=== PATIENT | male | born 1935 | race Caucasian/White ===

== ENCOUNTER 2019-11-23 15:21 | Inpatient (IN) | payer MEDICARE, BC ==
[2019-11-23 17:37] LABS: Glucose,Whole Blood 121 mg/dL (75-99)
[2019-11-23 20:51] LABS: Glucose,Whole Blood 143 mg/dL (75-99)
[2019-11-23] MEDS: INSULIN ASPART (NovoLOG) 100 UNIT/ML VIAL SQ SCH (21:01)
[2019-11-24] MEDS: INSULIN ASPART (NovoLOG) 100 UNIT/ML VIAL SQ SCH ×4 (06:18→20:54)
[2019-11-24 06:19] LABS: Glucose,Whole Blood 101 mg/dL (75-99)
[2019-11-24] MEDS: LOSARTAN 50 MG TAB PO SCH (08:38)
[2019-11-24] MEDS: TAMSULOSIN 0.4 MG CAP.ER.24H PO SCH (08:38)
[2019-11-24] MEDS: metFORMIN 500 MG TAB PO SCH ×2 (08:38→20:10)
[2019-11-24] MEDS: MULTIVITAMINS, THERA 1 EACH TAB PO SCH (08:38)
[2019-11-24] MEDS: ATENOLOL 50 MG TAB PO SCH (08:39)
[2019-11-24] MEDS: ASCORBIC ACID 500 MG TAB PO SCH (08:39)
--- NOTE | 2019-11-24 11:05 | P.CNNES ---
History of Present Illness Consult date: 11/24/19 Requesting physician: Milagro Contreras Reason for Consult: Rule out CVA History of Present Illness: Patient is a 84-year-old right-handed male. transferred from the [facility] because of possible TIA versus CVA. Patient states that he never had any history of strokes or TIA. Yesterday he woke up at 4 AM and was feeling fine. He went back to sleep and then woke up at 7-8 AM. 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 He came back inside home, and was still doing fine. At around 9 AM, he had sudden onset of trouble speaking. He could not think right, couldn't talk and was not making sense while talking. This was noticed while he was talking to his . There was no associated numbness tingling focal weakness, facial droop, problem with the vision. He noticed headache left temporal, a nagging headache that lasted all day. He denied any nausea vomiting loss of vision double vision. The speech difficulty resolved in about half an hour. However he still has very very slight lingering headache. Patient went to [facility]. He underwent Computed tomography scan of head without contrast on 11/23/2019, which showed generalized volume loss and evidence of chronic small vessel disease, not unexpected for age. No acute process. Partially calcified chronic appearing paranasal sinusitis. EKG shows normal sinus rhythm. Magnesium 2.0 troponin negative CBC with WBC 5.3 hemoglobin 10.4 and platelets 252 liver panel normal, electrolytes normal. BUN 20, creatinine 1.0. UA negative. Blood pressure in the ER was 188/70, heart rate 81 Patient has history of hypertension, type 2 diabetes, hyperlipidemia, coronary atherosclerosis, hard of hearing. Patient's medications include atenolol 50 mg, losartan 50 mg metformin 1000 mg twice a day Reglan 10 mg 4 times a day, Mobic 50 mg, Prilosec, simvastatin 20 mg, tramadol, Xanax 0.25 mg Zantac. Patient states that he never used to take any aspirin on a regular basis. Just in the last 2 weeks he started taking aspirin 81 mg daily thinking that it may may be good to take at his age. Patient has hypertension, borderline diabetes for 10 years. Never smoked cigarettes although he did smoke cigars for 30 years ago. He has not drank alcohol for 20 years. Review of Systems As above in detail. Denies chest pain, shortness of breath, wheezing cough. No fever or chills. Patient is very hard of hearing. Past Medical History Past Medical History: Diabetes Mellitus, GERD/Reflux, Hearing Disorder / Deafness, Hypertension History of Any Multi-Drug Resistant Organisms: None Reported Past Surgical History: Joint Replacement, Orthopedic Surgery Additional Past Surgical History / Comment(s): carpal tunnel surgery Past Anesthesia/Blood Transfusion Reactions: No Reported Reaction Past Psychological History: Anxiety, Bipolar Smoking Status: Former smoker - Past Family History Mother Family Medical History: Dementia Father Family Medical History: CVA/TIA, Myocardial Infarction ([place]) Medications and Allergies Home Medications Medication Instructions Recorded Confirmed Type Ascorbic Acid [Vitamin C] 500 mg PO DAILY 11/23/19 11/23/19 History Atenolol [Tenormin] 50 mg PO DAILY 11/23/19 11/23/19 History Losartan Potassium 50 mg PO DAILY 11/23/19 11/23/19 History Multivitamins, Thera [Multivitamin 1 tab PO DAILY 11/23/19 11/23/19 History (formulary)] Omeprazole 20 mg PO DAILY 11/23/19 11/23/19 History Ranitidine HCl 150 mg PO DAILY 11/23/19 11/23/19 History Tamsulosin HCl [Flomax] 0.4 mg PO DAILY 11/23/19 11/23/19 History Turmeric/Turmeric Root Extract 450 mg PO DAILY 11/23/19 11/23/19 History [Turmeric 450-50 mg Capsule] metFORMIN HCL 1,000 mg PO BID 11/23/19 11/23/19 History Allergies Allergy/AdvReac Type Severity Reaction Status Date / Time No Known Allergies Allergy Verified 11/23/19 19:00 Physical Examination - Vital Signs Vital Signs: Vital Signs Temp Pulse Resp BP Pulse Ox 11/24/19 04:00 98.1 F 62 16 142/73 96 11/23/19 23:21 60 18 11/23/19 23:20 97.9 F 60 18 145/68 97 11/23/19 20:00 98.1 F 63 18 141/65 97 11/23/19 19:00 97.9 F 66 173/78 97 Intake and Output 11/23/19 11/24/19 11/24/19 22:59 06:59 14:59 Intake Total 120 300 240 Balance 120 300 240 Intake: Oral 120 300 240 Other: # Voids 1 2 Weight 76 kg 74.8 kg On examination patient is an elderly male, very pleasant in no acute distress. Patient is alert and awake oriented to time place and person. Speech and language functions are normal. Attention, concentration fund of knowledge is adequate. Patient is very hard of hearing. Naming and repetition is intact. No aphasia or dysarthria. On cranial examination pupils are round and reactive to light, visual hernandez are full to confrontation, extraocular muscles are intact with no nystagmus. Face is symmetric, tongue protrudes the midline. Palatal elevation and sensation normal. Muscle strength testing is 100 and the strength is normal in arms and legs distally and proximally. He does have problems with his shoulders bilaterally from rotator cuff issues. Reflexa 2+ and plantars are downgoing bilaterally. Sensory to touch is equal. No ataxia for [id number] testing. Tone and bulk of muscles normal. Gait deferred. No carotid bruit or murmur. Peripheral pulses present. Results - Laboratory Findings Abnormal Lab Findings: Abnormal Labs 11/23/19 11/23/19 11/24/19 17:33 20:49 06:18 POC Glucose (mg/dL) 121 H 143 H 101 H Assessment and Plan Assessment: * 84-year-old male admitted with TIA with transient expressive aphasia, that resolved in half an hour. Patient also had some left sided headache, which is still persisting although much improved. * Hypertension * Diabetes * Hard of hearing Plan: * Patient will undergo workup for TIA. Patient will undergo MRI of the brain to evaluate for an acute stroke, and MRA of head to rule out any intracranial stenosis/aneurysm. * Carotid Doppler to rule out carotid stenosis. * 2-D echo with bubble study to rule out PFO. * Hemoglobin A1c and fasting lipid panel. * Continue aspirin 325 mg daily. * We will follow.
[2019-11-24 11:34] LABS: Cholesterol 161 mg/dL (<200); HDL Cholesterol 48 mg/dL (40-60); LDL Cholesterol,Calculated 99 mg/dL (0-99); Triglycerides 70 mg/dL (<150)
--- NOTE | 2019-11-24 11:35 | US ---
EXAMINATION TYPE: US carotid duplex BILAT DATE OF EXAM: 11/24/2019 COMPARISON: NONE CLINICAL HISTORY: TIA/CVA. TIA, exam done portable. EXAM MEASUREMENTS: RIGHT: Peak Systolic Velocity (PSV) cm/sec ----- Right CCA: 59.5 ----- Right ICA: 93.4 ----- Right ECA: 72.6 ICA/CCA ratio: 1.6 RIGHT: End Diastole cm/sec ----- Right CCA: 9.9 ----- Right ICA: 22.8 ----- Right ECA: 0.0 LEFT: Peak Systolic Velocity (PSV) cm/sec ----- Left CCA: 57.0 ----- Left ICA: 79.1 ----- Left ECA: 70.1 ICA/CCA ratio: 1.4 LEFT: End Diastole cm/sec ----- Left CCA: 11.6 ----- Left ICA: 19.7 ----- Left ECA: 0.0 VERTEBRALS (direction of flow): Right Vertebral: Antegrade Left Vertebral: Antegrade Rhythm: Normal No elevated velocities, no significant stenosis. IMPRESSION: 1. No significant hemodynamic stenosis as visualized. 2. Atherosclerotic changes. Criteria for Assigning % of Stenosis / Diameter reduction (Estimation based on the indirect measurements of the internal carotid artery velocities (ICA PSV). 1. Normal (no stenosis)=ICA PSV < 125 cm/s: ratio < 2.0: ICA EDV<40 cm/s. 2. Less than 50% stenosis=ICA PSV < 125 cm/s: ratio < 2.0: ICA EDV<40 cm/s. 3. 50 to 69% stenosis=ICA PSV of 125 to 230 cm/s: ration 2.0 ? 4.0: ICA EDV 40-100 cm/s. 4. Greater than 70% stenosis to near occlusion= ICA PSV > 230 cm/s: ratio > 4.0: ICA EDV > 100 cm/s. 5. Near occlusion= ICA PSV velocities may be low or undetectable: variable ratio and ICA EDV. 6. Total occlusion=unable to detect flow.
[2019-11-24 11:47] LABS: Glucose,Whole Blood 122 mg/dL (75-99)
[2019-11-24] MEDS: ASPIRIN 325 MG TAB PO SCH (12:44)
--- NOTE | 2019-11-24 14:06 | MR ---
EXAMINATION TYPE: MR brain wo con DATE OF EXAM: 11/24/2019 COMPARISON: CT head 11/23/2019 HISTORY: 84-year-old male Confusion, headache, CVA, possible aneurysm TECHNIQUE: Multiplanar, multisequence images of the brain and brainstem were acquired without IV con trast. Diffusion weighted imaging is performed. FINDINGS: No evidence for acute infarction, hemorrhage, mass, mass effect, midline shift, herniation, effacemen t of basal cisterns, or extra-axial fluid collection. Mild generalized supratentorial volume loss. Secondary mild prominence of the ventricular system. Major intracranial flow voids are intact. T2/FLAIR weighted sequences show moderate to severe patchy and confluent bright white matter change i n both hemispheres, greatest in the periventricular and deep white matter regions. Patchy signal boone ges are also present within the april and left basal ganglia. Midline structures demonstrate normal morphology. The craniocervical junction is normal. Some lobulated mucosal thickening, probable mucosal retention cyst left maxillary sinus. Severe mucos al thickening left sphenoid sinus and posterior right ethmoid air cells with some corresponding calci fication on CT. The globes are intact. IMPRESSION: 1. No acute intracranial abnormality seen. 2. Mild diffuse atrophy with moderate to severe changes of chronic small vessel ischemic disease. 3. 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 Corresponding calcificatio ns on CT may be an indicator of superimposed aspergillus infection.
--- NOTE | 2019-11-24 14:21 | MR ---
EXAMINATION TYPE: MR angio head wo con DATE OF EXAM: 11/24/2019 COMPARISON: Correlation MRI brain same day HISTORY: 84-year-old male Confusion, headache, CVA, possible aneurysm TECHNIQUE: High-resolution 3-D [id number] images focusing on the [place] were performed without contrast. Rotational 3-D reconstructions generated on a dedicated independent workstation. FINDINGS: The vertebral arteries are codominant. Both vertebral and basilar arteries are patent. Large bilateral posterior communicating arteries. P1 segment right posterior cerebral artery is sligh tly hypoplastic but patent. Internal carotid arteries are patent. Both posterior and anterior circulations are patent. No aneurysmal changes seen. IMPRESSION: No large vessel intracranial arterial occlusion, significant stenosis, or aneurysmal change is seen.
[2019-11-24 15:26] LABS: Hemoglobin A1C 6.9 % (4.0-6.0)
--- NOTE | 2019-11-24 17:00 | ECHOF ---
Referral Reason:TIA MEASUREMENTS -------- HEIGHT: 165.1 cm WEIGHT: 74.4 kg BP: 142/73 RVIDd: 3.3 cm (< 3.3) IVSd: 1.5 cm (0.6 - 1.1) LVIDd: 4.6 cm (3.9 - 5.3) LVPWd: 1.9 cm (0.6 - 1.1) IVSs: 2.0 cm LVIDs: 2.1 cm LVPWs: 2.4 cm LAESV Index (A-L): 38.18 ml/m Ao Diam: 3.6 cm (2.0 - 3.7) AV Cusp: 2.2 cm (1.5 - 2.6) MV EXCURSION: 15.944 mm (> 18.000) MV EF SLOPE: 37 mm/s (70 - 150) EPSS: 0.7 cm MV E Kenny: 1.08 m/s MV DecT: 288 ms MV A Kenny: 1.34 m/s MV E/A Ratio: 0.81 RAP: 5.00 mmHg RVSP: 32.77 mmHg FINDINGS -------- Sinus rhythm. This was a technically adequate study. The left ventricular size is normal. There is moderate concentric left ventricular hypertrophy. O verall left ventricular systolic function is normal with, an EF between 55 - 60 %. The diastolic fi lling pattern is normal for the age of the patient 15.15. The right ventricle is mildly enlarged. LA is moderately dilated 34-39 ml/m2 The right atrium was not well visualized. Contrast study was performed with 2 iv injections of 8 ccs of agitated normal saline, at rest, and wi th cough. Interatrial and interventricular septum intact. Bubble study to rule out shunt. No shunt seen. There is moderate aortic valve sclerosis. There is no evidence of aortic regurgitation. There is no evidence of aortic stenosis. Moderate mitral annular calcification present. [id number]-[id number] mitral regurgitation is present. Mild tricuspid regurgitation present. There is no evidence of pulmonary hypertension. The right v entricular systolic pressure, as measured by Doppler, is 32.77mmHg. The pulmonic valve was not well visualized. There is no pulmonic regurgitation present. The aortic root size is normal. IVC Not well visulized. There is no pericardial effusion. CONCLUSIONS -------- 1. There is moderate concentric left ventricular hypertrophy. 2. Overall left ventricular systolic function is normal with, an EF between 55 - 60 %. 3. The diastolic filling pattern is normal for the age of the patient 15.15 4. The right ventricle is mildly enlarged. 5. LA is moderately dilated 34-39 ml/m2 6. Contrast study was performed with 2 iv injections of 8 ccs of agitated normal saline, at rest, and with cough. 7. Bubble study to rule out shunt. No shunt seen. 8. There is moderate aortic valve sclerosis. 9. Moderate mitral annular calcification present. 10. Whcr-[id number]-[id number] mitral regurgitation is present. 11. Mild tricuspid regurgitation present. RESIDENTIAL REMODELING SUBCONTRACTOR: Breonna Bergman RDCS
[2019-11-24 17:37] LABS: Glucose,Whole Blood 125 mg/dL (75-99)
--- NOTE | 2019-11-24 19:10 | P.HPIM ---
History of Present Illness This is a pleasant 84 years old male with past medical history of hypertension, diabetes mellitus, gastroesophageal reflux disease and hearing difficulty. Patient presents one-day duration of difficulty talking associated with mild headache all day yesterday but feels better today with no specific weakness or abnormal sensation or numbness in the extremities. He went to [facility] were here has transferred to [facility] for neurologist evaluated the patient Patient currently states that his speech is back to his baseline. He denies any other complaints. No blurred vision, no weakness, no numbness He Is still have mild headache on and off He is hemodynamically stable except for mild bradycardia Hemoglobin A1c is 6.9%, EKG shows normal sinus rhythm. Magnesium 2.0 troponin negative CBC with WBC 5.3k, hemoglobin 10.4 and platelets 252 liver panel normal, electrolytes normal. BUN 20, creatinine 1.0. UA negative. Review of Systems CONSTITUTIONAL: No fever, no malaise, no fatigue. HEENT: No recent visual problems or hearing problems. Denied any sore throat. CARDIOVASCULAR: No orthopnea, PND, no palpitations, no syncope. PULMONARY: No shortness of breath, no cough, no hemoptysis. GASTROINTESTINAL: No diarrhea, no nausea, no vomiting, no abdominal pain. Normoa ctive bowel sounds. NEUROLOGICAL: No headaches, no weakness, no numbness. HEMATOLOGICAL: Denies any bleeding or petechiae. GENITOURINARY: Denies any burning micturition, frequency, or urgency. MUSCULOSKELETAL/RHEUMATOLOGICAL: Denies any joint pain, swelling, or any muscle pain. ENDOCRINE: Denies any polyuria or polydipsia. Past Medical History Past Medical History: Diabetes Mellitus, GERD/Reflux, Hearing Disorder / Deafness, Hypertension History of Any Multi-Drug Resistant Organisms: None Reported Past Surgical History: Joint Replacement, Orthopedic Surgery Additional Past Surgical History / Comment(s): carpal tunnel surgery Past Anesthesia/Blood Transfusion Reactions: No Reported Reaction Past Psychological History: Anxiety, Bipolar Smoking Status: Former smoker - Past Family History Mother Family Medical History: Dementia Father Family Medical History: CVA/TIA, Myocardial Infarction ([place]) Medications and Allergies Home Medications Medication Instructions Recorded Confirmed Type Ascorbic Acid [Vitamin C] 500 mg PO DAILY 11/23/19 11/23/19 History Atenolol [Tenormin] 50 mg PO DAILY 11/23/19 11/23/19 History Losartan Potassium 50 mg PO DAILY 11/23/19 11/23/19 History Multivitamins, Thera [Multivitamin 1 tab PO DAILY 11/23/19 11/23/19 History (formulary)] Omeprazole 20 mg PO DAILY 11/23/19 11/23/19 History Ranitidine HCl 150 mg PO DAILY 11/23/19 11/23/19 History Tamsulosin HCl [Flomax] 0.4 mg PO DAILY 11/23/19 11/23/19 History Turmeric/Turmeric Root Extract 450 mg PO DAILY 11/23/19 11/23/19 History [Turmeric 450-50 mg Capsule] metFORMIN HCL 1,000 mg PO BID 11/23/19 11/23/19 History Allergies Allergy/AdvReac Type Severity Reaction Status Date / Time No Known Allergies Allergy Verified 11/23/19 19:00 Physical Exam Vitals: Vital Signs Temp Pulse Pulse Resp BP Pulse Ox 11/24/19 12:00 54 L 54 L 144/74 96 11/24/19 08:00 97.8 F 64 64 171/76 96 11/24/19 04:00 98.1 F 62 16 142/73 96 11/23/19 23:21 60 18 11/23/19 23:20 97.9 F 60 18 145/68 97 11/23/19 20:00 98.1 F 63 18 141/65 97 11/23/19 19:00 97.9 F 66 173/78 97 Intake and Output 11/24/19 11/24/19 11/24/19 06:59 14:59 22:59 Intake Total 300 360 240 Balance 300 360 240 Intake: Oral 300 360 240 Other: # Voids 2 1 # Bowel Movements 0 Weight 74.8 kg GENERAL: The patient is alert and oriented x3, not in any acute distress. Well developed, well nourished. HEENT: Pupils are round and equally reacting to light. EOMI. No scleral icterus. No conjunctival pallor. Normocephalic, atraumatic. No pharyngeal erythema. No thyromegaly. CARDIOVASCULAR: S1 and S2 present. No murmurs, rubs, or gallops. PULMONARY: Chest is clear to auscultation, no wheezing or crackles. ABDOMEN: Soft, nontender, nondistended, normoactive bowel sounds. No palpable organomegaly. MUSCULOSKELETAL: No joint swelling or deformity. EXTREMITIES: No cyanosis, clubbing, or pedal edema. NEUROLOGICAL: Gross neurological examination did not reveal any focal deficits. SKIN: No rashes. No petechiae Results Labs: Abnormal Lab Results - Last 24 Hours (Table) 11/23/19 11/24/19 11/24/19 Range/Units 20:49 05:28 06:18 POC Glucose (mg/dL) 143 H 101 H (75-99) mg/dL Hemoglobin A1c 6.9 H (4.0-6.0) % 11/24/19 11/24/19 Range/Units 11:32 17:36 POC Glucose (mg/dL) 122 H 125 H (75-99) mg/dL Hemoglobin A1c (4.0-6.0) % Thrombosis Risk Factor Assmnt - Choose All That Apply Each Risk Factor Represents 3 Points: Age 75 years or older Thrombosis Risk Factor Assessment Total Risk Factor Score: 3 Thrombosis Risk Factor Assessment Level: Moderate Risk Assessment and Plan Assessment: acute stroke versus TIA Diabetes mellitus Essential hypertension Gastroesophageal reflux disease Hearing difficulty Plan: This is a pleasant 84 years old male who presents with TIA versus stroke. Patient was started on aspirin 325 mg. Neurology on the case Labs and medication were reviewed.. Continue same treatment. Continue with symptomatic treatment. Resume home medication. Monitor lytes and vitals. DVT and GI prophylaxis. Further recommendations of the clinical course of the patient DVT prophylaxis: Subcutaneous heparin GI Prophylaxis: Pepcid PT/OT: Pending Prognosis is guarded
[2019-11-24] MEDS: HEPARIN SODIUM,PORCINE 5,000 UNIT/ML 1 ML VIAL SQ SCH (20:09)
[2019-11-24] MEDS: FAMOTIDINE 20 MG/2 ML VIAL IV SCH (20:10)
[2019-11-24 20:44] LABS: Glucose,Whole Blood 186 mg/dL (75-99)
[2019-11-25 06:16] LABS: Glucose,Whole Blood 109 mg/dL (75-99)
[2019-11-25] MEDS: INSULIN ASPART (NovoLOG) 100 UNIT/ML VIAL SQ SCH ×4 (06:31→21:15)
[2019-11-25] MEDS: ASPIRIN 325 MG TAB PO SCH (09:12)
[2019-11-25] MEDS: TAMSULOSIN 0.4 MG CAP.ER.24H PO SCH (09:12)
[2019-11-25] MEDS: MULTIVITAMINS, THERA 1 EACH TAB PO SCH (09:12)
[2019-11-25] MEDS: ASCORBIC ACID 500 MG TAB PO SCH (09:12)
[2019-11-25] MEDS: ATENOLOL 50 MG TAB PO SCH (09:12)
[2019-11-25] MEDS: metFORMIN 500 MG TAB PO SCH ×2 (09:12→21:15)
[2019-11-25] MEDS: HEPARIN SODIUM,PORCINE 5,000 UNIT/ML 1 ML VIAL SQ SCH ×2 (09:13→21:14)
[2019-11-25] MEDS: FAMOTIDINE 20 MG/2 ML VIAL IV SCH (09:13)
[2019-11-25] MEDS: LOSARTAN 50 MG TAB PO SCH (09:13)
[2019-11-25 11:38] LABS: Glucose,Whole Blood 97 mg/dL (75-99)
[2019-11-25] MEDS ORDERED: hydrALAZINE HCL 50 MG TAB PO PRN (12:23)
--- NOTE | 2019-11-25 13:39 | P.PN ---
Objective - Vital Signs Vital signs: Vital Signs Temp 98.6 F 11/25/19 12:00 Pulse 70 11/25/19 12:00 Resp 18 11/25/19 12:00 BP 208/101 11/25/19 12:00 Pulse Ox 93 L 11/25/19 12:00 Intake & Output 11/24/19 11/25/19 11/25/19 18:59 06:59 18:59 Intake Total 600 400 240 Balance 600 400 240 Weight 73.2 kg Intake: Oral 600 400 240 Other: Voiding Method Toilet Toilet # Voids 1 1 # Bowel Movements 0 - Exam This is a pleasant 84 years old male with past medical history of hypertension, diabetes mellitus, gastroesophageal reflux disease and hearing difficulty. Patient presents one-day duration of difficulty talking associated with mild headache all day yesterday but feels better today with no specific weakness or abnormal sensation or numbness in the extremities. He went to [facility] were here has transferred to [facility] for neurologist evaluated the patient Patient currently states that his speech is back to his baseline. He denies any other complaints. No blurred vision, no weakness, no numbness He Is still have mild headache on and off He is hemodynamically stable except for mild bradycardia Hemoglobin A1c is 6.9%, EKG shows normal sinus rhythm. Magnesium 2.0 troponin negative CBC with WBC 5.3k, hemoglobin 10.4 and platelets 252 liver panel normal, electrolytes normal. BUN 20, creatinine 1.0. UA negative. 11/25/2019 Patient is alert awake, and his troponin with no difficulty, gait is normal. No weakness or numbness. His workup for possible stroke including MRI and MRA of the brain was negative, also echocardiogram and carotid duplex were no concerning for lesion. Neurology following the case closely. Patient was asking to be discharged home today however his blood pressure was uncontrolled and was 208/101, patient is already on beta freddy and hydralazine has been admitted with close monitoring for blood pressure I have lengthy discussion with the patient including counseling and recommendation and he agrees to stay. Also discussed with bed side nurse Review of systems CONSTITUTIONAL: No fever, no malaise, no fatigue. HEENT: No recent visual problems or hearing problems. Denied any sore throat. CARDIOVASCULAR: No orthopnea, PND, no palpitations, no syncope. PULMONARY: No shortness of breath, no cough, no hemoptysis. GASTROINTESTINAL: No diarrhea, no nausea, no vomiting, no abdominal pain. Normoactive bowel sounds. NEUROLOGICAL: No headaches, no weakness, no numbness. HEMATOLOGICAL: Denies any bleeding or petechiae. GENITOURINARY: Denies any burning micturition, frequency, or urgency. MUSCULOSKELETAL/RHEUMATOLOGICAL: Denies any joint pain, swelling, or any muscle pain. ENDOCRINE: Denies any polyuria or polydipsia. Active Medications Generic Name Dose Route Start Last Admin Trade Name Camille PRN Reason Stop Dose Admin Ascorbic Acid 500 mg 11/24/19 09:00 11/25/19 09:12 Vitamin C PO 500 mg DAILY KAYE Administration Aspirin 325 mg 11/24/19 11:00 11/25/19 09:12 Aspirin PO 325 mg DAILY KAYE Administration Atenolol 50 mg 11/24/19 09:00 11/25/19 09:12 Tenormin PO 50 mg DAILY KAYE Administration Famotidine 20 mg 11/25/19 21:00 Pepcid PO Q12HR [facility] Heparin Sodium (Porcine) 5,000 unit 11/24/19 21:00 11/25/19 09:13 Heparin SQ 5,000 unit Q12HR [facility] Administration Hydralazine HCl 25 mg 11/25/19 21:00 Apresoline PO BID [facility] Insulin Aspart 0 unit 11/23/19 21:00 11/25/19 12:17 Novolog SQ Not Given ACHS [facility] Protocol Losartan Potassium 50 mg 11/24/19 09:00 11/25/19 09:13 Cozaar PO 50 mg DAILY KAYE Administration Metformin HCl 1,000 mg 11/24/19 09:00 11/25/19 09:12 Glucophage PO 1,000 mg BID KAYE Administration Multivitamins 1 each 11/24/19 09:00 11/25/19 09:12 Theragran PO 1 each DAILY KAYE Administration Tamsulosin HCl 0.4 mg 11/24/19 09:00 11/25/19 09:12 Flomax PO 0.4 mg DAILY KAYE Administration - Labs Labs: Abnormal Lab Results - Last 24 Hours (Table) 11/24/19 11/24/19 11/24/19 Range/Units 05:28 17:36 20:43 POC Glucose (mg/dL) 125 H 186 H (75-99) mg/dL Hemoglobin A1c 6.9 H (4.0-6.0) % 11/25/19 Range/Units 06:14 POC Glucose (mg/dL) 109 H (75-99) mg/dL Hemoglobin A1c (4.0-6.0) % Assessment and Plan Assessment: acute stroke versus TIA Diabetes mellitus Essential hypertension, uncontrolled Gastroesophageal reflux disease Hearing difficulty Plan: This is a pleasant 84 years old male who presents with TIA versus stroke. Patient was started on aspirin 325 mg. Neurology on the case. Need close monitoring for blood pressure. Continue with Atenolol and and hydralazine Labs and medication were reviewed.. Continue same treatment. Continue with symptomatic treatment. Resume home medication. Monitor lytes and vitals. DVT and GI prophylaxis. Further recommendations of the clinical course of the patient DVT prophylaxis: Subcutaneous heparin GI Prophylaxis: Pepcid PT/OT: Pending Prognosis is guarded
[2019-11-25 16:35] LABS: Glucose,Whole Blood 134 mg/dL (75-99)
--- NOTE | 2019-11-25 17:01 | P.PN ---
Subjective Progress Note Date: 11/25/19 Patient feels perfectly fine. No new neurological symptoms. Wants to go home. Objective - Vital Signs Vital signs: Vital Signs Temp 98 F 11/25/19 15:21 Pulse 85 11/25/19 15:21 Resp 18 11/25/19 15:21 BP 132/59 11/25/19 15:21 Pulse Ox 98 11/25/19 15:21 Intake & Output 11/24/19 11/25/19 11/25/19 18:59 06:59 18:59 Intake Total 600 400 600 Balance 600 400 600 Weight 73.2 kg Intake: Oral 600 400 600 Other: Voiding Method Toilet Toilet # Voids 1 1 # Bowel Movements 0 - Exam Nonfocal. - Labs Labs: Abnormal Lab Results - Last 24 Hours (Table) 11/24/19 11/24/19 11/25/19 Range/Units 17:36 20:43 06:14 POC Glucose (mg/dL) 125 H 186 H 109 H (75-99) mg/dL 11/25/19 Range/Units 16:33 POC Glucose (mg/dL) 134 H (75-99) mg/dL Assessment and Plan Assessment: * 84-year-old male admitted with TIA with transient expressive aphasia, that resolved in half an hour. Patient also had some left sided headache, which is still persisting although much improved. * Hypertension * Diabetes * Hard of hearing Plan: * MRI of the brain revealed no acute process. Mild diffuse atrophy with moderate to severe changes of chronic small vessel ischemic disease. 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 Corresponding calcifications on the CT may be an indicator of superimposed aspergillus infection. Discussed with PCP. Patient has no symptoms of sinusitis at this time. * MRA of head showed no large vessel intracranial arterial occlusion, significant stenosis or aneurysmal change. * Carotid Doppler showed no significant stenosis. Antegrade flow in both vertebral arteries. * 2-D echo with bubble study showed EF 55-60%. Moderate concentric LVH, left atrium is moderately dilated. Agitated saline negative for shunt. Moderate aortic valve sclerosis. Moderate mitral annular calcification. * Hemoglobin A1c 6.9 and fasting lipid panel showed cholesterol 161, LDL 99, HDL 48 and triglycerides 70. * Continue aspirin 325 mg daily. We will start Lipitor 10 mg daily to target LDL <70. * Patient's blood pressure has gone up. Neurologically clear for discharge, once blood pressure comes under control.
[2019-11-25 20:51] LABS: Glucose,Whole Blood 180 mg/dL (75-99)
[2019-11-25] MEDS ORDERED: ATORVASTATIN 10 MG TAB PO SCH (21:00)
[2019-11-25] MEDS: hydrALAZINE HCL 25 MG TAB PO SCH (21:15)
[2019-11-25] MEDS: FAMOTIDINE 20 MG TAB PO SCH (21:15)
[2019-11-26 06:16] LABS: Glucose,Whole Blood 113 mg/dL (75-99)
[2019-11-26] MEDS: hydrALAZINE HCL 25 MG TAB PO SCH (06:53)
[2019-11-26] MEDS: ATENOLOL 50 MG TAB PO SCH (06:54)
[2019-11-26] MEDS: ASPIRIN 325 MG TAB PO SCH (08:44)
[2019-11-26] MEDS: TAMSULOSIN 0.4 MG CAP.ER.24H PO SCH (08:44)
[2019-11-26] MEDS: FAMOTIDINE 20 MG TAB PO SCH (08:44)
[2019-11-26] MEDS: metFORMIN 500 MG TAB PO SCH (08:44)
[2019-11-26] MEDS: LOSARTAN 50 MG TAB PO SCH (08:44)
[2019-11-26] MEDS: ASCORBIC ACID 500 MG TAB PO SCH (08:44)
[2019-11-26] MEDS: MULTIVITAMINS, THERA 1 EACH TAB PO SCH (08:44)
[2019-11-26] MEDS: HEPARIN SODIUM,PORCINE 5,000 UNIT/ML 1 ML VIAL SQ SCH (08:46)
[2019-11-26] MEDS ORDERED: amLODIPine 10 MG TAB PO SCH (10:15)
[2019-11-26] MEDS ORDERED: ALPRAZolam 0.25 MG TAB PO PRN (10:59)
[2019-11-26] MEDS: INSULIN ASPART (NovoLOG) 100 UNIT/ML VIAL SQ SCH (11:09)
[2019-11-26 11:31] LABS: Glucose,Whole Blood 109 mg/dL (75-99)
[2019-11-26] MEDS ORDERED: hydrALAZINE HCL 50 MG TAB PO SCH (13:30)
--- NOTE | 2019-11-26 15:45 | P.PN ---
Subjective Progress Note Date: 11/26/19 Patient desperately wants to go home. Patient's blood pressure continues to be poorly controlled ranging systolic 200-184. Patient was given Xanax. He feels lightheaded, any sweating. He feels he has some sinus infection. Objective - Vital Signs Vital signs: Vital Signs Temp 98.1 F 11/26/19 07:47 Pulse 66 11/26/19 11:52 Resp 18 11/26/19 11:52 BP 195/77 11/26/19 13:06 Pulse Ox 99 11/26/19 11:52 Intake & Output 11/25/19 11/26/19 11/26/19 18:59 06:59 18:59 Intake Total 840 120 900 Balance 840 120 900 Weight 73.2 kg Intake: Oral 840 120 900 Other: Voiding Method Toilet Toilet # Voids 1 1 - Exam Nonfocal. Patient is very hard of hearing. - Labs Labs: Abnormal Lab Results - Last 24 Hours (Table) 11/25/19 11/25/19 11/26/19 Range/Units 16:33 20:50 06:15 POC Glucose (mg/dL) 134 H 180 H 113 H (75-99) mg/dL 11/26/19 Range/Units 11:26 POC Glucose (mg/dL) 109 H (75-99) mg/dL Assessment and Plan Assessment: * 84-year-old male admitted with TIA with transient expressive aphasia, that resolved in half an hour. Patient also had some left sided headache, which is still persisting although much improved. * Hypertension * Diabetes * Hard of hearing Plan: * MRI of the brain revealed no acute process. Mild diffuse atrophy with moderate to severe changes of chronic small vessel ischemic disease. 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 Corresponding calcifications on the CT may be an indicator of superimposed aspergillus infection. Discussed with PCP. Patient has no symptoms of sinusitis at this time. * MRA of head showed no large vessel intracranial arterial occlusion, significant stenosis or aneurysmal change. * Carotid Doppler showed no significant stenosis. Antegrade flow in both vertebral arteries. * 2-D echo with bubble study showed EF 55-60%. Moderate concentric LVH, left atrium is moderately dilated. Agitated saline negative for shunt. Moderate aortic valve sclerosis. Moderate mitral annular calcification. * Hemoglobin A1c 6.9 and fasting lipid panel showed cholesterol 161, LDL 99, HDL 48 and triglycerides 70. * Continue aspirin 325 mg daily. We will start Lipitor 10 mg daily to target LDL <70. * Patient's blood pressure continues to stay up. Neurologically clear for discharge, once blood pressure comes under control.
[2019-11-26] MEDS ORDERED: hydrALAZINE HCL 25 MG TAB PO SCH (16:00)
[2019-11-26 16:24] VITALS: BP 126/65; PULSE 75; RESP 16; TEMP 97.8
[2019-11-26 16:39] LABS: Glucose,Whole Blood 148 mg/dL (75-99)
--- NOTE | 2019-11-30 20:57 | P.DS ---
Providers Date of admission: 11/23/19 17:27 Attending physician: Darcy Jacome Consults: 11/23/19 19:51 Consult Physician Routine Consulting Provider: Ham Bowman Consult Reason/Comments: rule out cva Do you want consulting provider notified?: Yes, Notify in am Primary care physician: Stated None Hospital Course: Diagnoses: acute TIA, rather than to stroke with slurred speech on admission this comp letely resolved Essential hypertension, uncontrolled Diabetes mellitus Gastroesophageal reflux disease Hearing difficulty Hospital course: This is a pleasant 84 years old male with past medical history of hypertension, diabetes mellitus, gastroesophageal reflux disease and hearing difficulty. Patient presents one-day duration of difficulty talking associated with mild headache all day yesterday but feels better today with no weakness or abnormal sensation or numbness in the extremities. Patient has been evaluated by neurologist and his workup came back negative including MRI and MRA of the brain, carotid duplex and echocardiogram (please see report), patient has been evaluated by neurologist and patient was started on aspirin 325 mg daily and he agrees Patient back to his baseline status and he was anxious to be discharged from yesterday however his blood pressure is uncontrolled and antihypertensive medication were added, see orders. her SBP was 120s over more than hour and a half apart, with stabilization of his BP and pt is very anxious to be discharged , he can follow as out-patient with his PCP. Radiologist mentions possible Aspergillus in his report which is seems unlikely as patient does not have symptoms with no fever and there is no culture available, so I disagree with his input. pt may follow up as outpatient Today patient denies headache, chest pain, no dyspnea, no change in urine or bowel habits, gait is stable. No fever Patient was cleared for discharge by neurologist Problems and management plan were discussed with the patient and he verbalized understanding and acceptance Patient was found stable and can be discharged home however he needs follow-up as an outpatient. Patient was instructed to follow up with PCP within one week and patient agrees, he agrees to the appointments with the [employer] Mayito Carrion from his PCP office on 12/02, I called Mayito Carrion and discussed the case with him with a recommendation for: Blood pressure, neurologist follow-up and referral, also I discussed with him the findings of the MRI and the CAT scan of the head which were suspicious for severe sinus infection and possible Aspergillus per radiologist's report with the recommendation to refer the patient to ENT as an outpatient and he kindly took note of these, also I told him patient was not started on antibiotics as he did not have any symptoms on discharge , also patient was instructed to follow up with the neurologist Dr. Roberson in 2 weeks and he agrees Gen: patient is a AAOx3, no distress CVS: S1-S2, RRR, no murmur Lungs: B/L CTA, no wheezing Abdomen: soft, no distention, no tenderness, positive bowel sounds Extremity: no leg edema or induration Time spent more than 35 minutes Plan - Discharge Summary Discharge Rx Participant: Yes New Discharge Prescriptions: New RX: Aspirin 325 mg PO DAILY #30 tab RX: Atorvastatin [Lipitor] 10 mg PO HS #30 tab RX: hydrALAZINE HCL [Apresoline] 50 mg PO BID #120 tab amLODIPine [Norvasc] 5 mg PO DAILY #30 tab Continue RX: Atenolol [Tenormin] 50 mg PO DAILY RX: Turmeric/Turmeric Root Extract [Turmeric 450-50 mg Capsule] 450 mg PO DAILY RX: Multivitamins, Thera [Multivitamin (formulary)] 1 tab PO DAILY RX: Ascorbic Acid [Vitamin C] 500 mg PO DAILY RX: Tamsulosin HCl [Flomax] 0.4 mg PO DAILY RX: Ranitidine HCl 150 mg PO DAILY RX: Omeprazole 20 mg PO DAILY RX: metFORMIN HCL 1,000 mg PO BID RX: Losartan Potassium 50 mg PO DAILY Discharge Medication List RX: Ascorbic Acid [Vitamin C] 500 mg PO DAILY 11/23/19 [History] RX: Atenolol [Tenormin] 50 mg PO DAILY 11/23/19 [History] RX: Losartan Potassium 50 mg PO DAILY 11/23/19 [History] RX: Multivitamins, Thera [Multivitamin (formulary)] 1 tab PO DAILY 11/23/19 [History] RX: Omeprazole 20 mg PO DAILY 11/23/19 [History] RX: Ranitidine HCl 150 mg PO DAILY 11/23/19 [History] RX: Tamsulosin HCl [Flomax] 0.4 mg PO DAILY 11/23/19 [History] RX: Turmeric/Turmeric Root Extract [Turmeric 450-50 mg Capsule] 450 mg PO DAILY 11/23/19 [History] RX: metFORMIN HCL 1,000 mg PO BID 11/23/19 [History] RX: Aspirin 325 mg PO DAILY #30 tab 11/25/19 [Rx] RX: Atorvastatin [Lipitor] 10 mg PO HS #30 tab 11/26/19 [Rx] RX: hydrALAZINE HCL [Apresoline] 50 mg PO BID #120 tab 11/26/19 [Rx] amLODIPine [Norvasc] 5 mg PO DAILY #30 tab 11/26/19 [Rx] Follow up Appointment(s)/Referral(s): Anselmo Palacio MD [STAFF PHYSICIAN] - 2 Weeks (office notified and will contact you with an appointment) Davian Bowling MD [REFERRING] - 12/03/19 8:00 am Discharge Disposition: HOME SELF-CARE
== END 2019-11-26 18:44 | disposition home or self-care (01) | DRG 69 ==
LOC: 3SCARD 17:27
PROVIDERS: ADMIT Internal Medicine; ATTEND Internal Medicine
DX: G45.9 Transient cerebral ischemic attack, unspecified (principal); R47.01 Aphasia; E11.51 Type 2 diabetes mellitus with diabetic peripheral angiopathy without gangrene; E78.5 Hyperlipidemia, unspecified; F17.290 Nicotine dependence, other tobacco product, uncomplicated; F31.9 Bipolar disorder, unspecified; F41.9 Anxiety disorder, unspecified; H91.90 Unspecified hearing loss, unspecified ear; I10 Essential (primary) hypertension; I25.10 Atherosclerotic heart disease of native coronary artery without angina pectoris; R51 Headache; K21.9 Gastro-esophageal reflux disease without esophagitis; Z79.82 Long term (current) use of aspirin; Z79.84 Long term (current) use of oral hypoglycemic drugs; Z79.899 Other long term (current) drug therapy; Z82.49 Family history of ischemic heart disease and other diseases of the circulatory system; Z86.73 Personal history of transient ischemic attack (TIA), and cerebral infarction without residual deficits
CPT/HCPCS: 70544; 70551; 80061; 83036; 93306; 93880

== ENCOUNTER → 2023-06-20 | Outpatient (CLI) | payer MEDICARE, BC ==
--- NOTE | 2023-06-20 12:15 | FL ---
EXAMINATION TYPE: FL barium swallow w video DATE OF EXAM: 06/20/2023 COMPARISON: NONE HISTORY: Dysphasia TECHNIQUE: Fluoroscopy. FINDINGS: Fluoroscopic guidance was provided for the procedure performed in conjunction with the [facility] pathology department. Please see complete report forthcoming from the Speech Pathology departmen t. Various consistencies from thin liquid to solids were administered. Fluoroscopy time 1 minute 41 seconds. Number of images: 0. Penetration was evident with thin and thick liquids. Some aspiration was present with thin liquids There is significant pooling which the patient was unable to clear in the hypopharynx above the proxi mal esophageal sphincter. This pooling with the thin liquid flowed to aspiration. IMPRESSION: 1. Significant retention within the hypopharynx. 2. Aspiration with thin liquids, penetration was evident with nectar thick liquids
== END | disposition home or self-care (01) ==
LOC: RADFLMAIN 11:09
PROVIDERS: ATTEND Otolaryngology
DX: R13.10 Dysphagia, unspecified (principal); T17.298A Other foreign object in pharynx causing other injury, initial encounter
CPT/HCPCS: 74230